=== PATIENT | female | born 1945 | race Caucasian/White ===

== ENCOUNTER 2022-09-25 01:35 | Inpatient (IN) | payer OTHER, MEDICARE ==
[~2022-09-25] VITALS: Ht 152.4 cm; Wt 64.9 kg
[2022-09-25] VITALS (18 sets, daily range): BP systolic 106–152; BP diastolic 73–94
[2022-09-25] MEDS ORDERED: HYDROcodone-ACET 5/325MG TAB PO ONE (02:00)
[2022-09-25] MEDS ORDERED: ONDANSETRON ODT 4 MG TAB PO ONE (02:30)
[2022-09-25] MEDS ORDERED: MORPHINE SULFATE INJ 2 MG/ml SYRG IM ONE (02:30)
[2022-09-25] MEDS ORDERED: IPRATROPIUM BROM 0.5 MG/2.5ML INH SOL NEB ONE (03:00)
[2022-09-25] MEDS ORDERED: ALBUTEROL SULF 2.5 MG/0.5ML(0.5%) NEB SOLN NEB ONE (03:00)
[2022-09-25] MEDS ORDERED: ALBUTEROL MEDNEB 2.5 mg/3ml NEB ONE ×2 (03:10→17:52)
[2022-09-25] MEDS ORDERED: LORazepam 2MG/ML-1ML VIAL IV ONE (03:45)
[2022-09-25 03:59] LABS: Basophils # (auto) 0.1 10 ^3/uL (0-0.2); Basophils % (auto) 0.5 % (0.0-2.0); Eosinophils # (auto) 0 10 ^3/uL (0-0.8); Hematocrit 39.5 % (36.0-46.0); Hemoglobin 13.5 g/dL (12.2-16.2); Lymphocytes # (auto) 0.9 10 ^3/uL (0.4-5.4); Lymphocytes % (auto) 3.8 % (10.0-50.0); Mean Corpuscular Hemoglobin 33.7 pg (28.0-32.0); Mean Corpuscular Hgb Conc. 34.3 g/dL (32.0-36.0); Mean Corpuscular Volume 98.5 fL (80.0-100.0); Monocytes # (auto) 1.2 10 ^3/uL (0-1.3); Monocytes % (auto) 5.4 % (0.0-12.0); Neutrophils % (auto) 90.3 % (37.0-80.0); Nucleated Red Blood Cells % 0.1 %; Red Blood Cells 4.01 10^6/uL (4.0-5.20); Red Cell Distribution Width 13.6 % (11.8-14.3); White Blood Cell 23.3 10^3/uL (4.4-10.8)
[2022-09-25 04:04] LABS: Alanine Aminotransferase 28 U/L (13-56); Albumin 3.7 g/dL (3.4-5.0); Anion Gap 29 (5-15); Aspartate Aminotransferase 75 U/L (15-37); BUN/Creatinine Ratio 10.7; Blood Urea Nitrogen 12 mg/dL (7-18); Calcium 7.9 mg/dL (8.5-10.1); Carbon Dioxide 17 mmol/L (21-32); Chloride 68 mmol/L (98-107); GFR African American 61 mL/min; GFR Non-African American 50 mL/min; Glucose 146 mg/dL (74-106)
[2022-09-25 04:07] LABS: Alkaline Phosphatase 96 U/L (45-117); Bilirubin, Total 2.2 mg/dL (0.2-1.0); Total Protein 6.9 g/dL (6.4-8.2)
[2022-09-25] MEDS ORDERED: hydrALAZINE HCL 20 MG/ML VL IV ONE (04:30)
[2022-09-25 04:34] LABS: Potassium 2.7 mmol/L (3.5-5.1); Sodium 114 mmol/L (136-145)
[2022-09-25] MEDS ORDERED: POTASSIUM CHL 20MEQ/100ML 100 ML IV ONE ×2 (04:45→06:15)
[2022-09-25] MEDS ORDERED: POTASSIUM CHL 20 Meq TABLET PO ONE (04:45)
[2022-09-25] MEDS ORDERED: cefTRIAXone 1GM/50ML D5W 50 ML IV ONE (04:45)
[2022-09-25] MEDS ORDERED: ETOMIDATE (2MG/ML) 20ML VIAL IV ONE ×2 (05:56→06:45)
[2022-09-25] MEDS ORDERED: MIDAZOLAM HCL 2MG/2ML 2ml VIAL (1mg/ml) ONE (05:57)
[2022-09-25] MEDS ORDERED: ROCURONIUM 10MG/ML 10ML VIAL IV ONE ×2 (05:57→06:45)
[2022-09-25] MEDS ORDERED: MIDAZOLAM DRIP 50 mg/50mL 50 ML IV ONE (06:30)
[2022-09-25] MEDS: MIDAZOLAM DRIP 50 mg/50mL 50 ML IV SCH (06:40)
[2022-09-25] MEDS ORDERED: MIDAZOLAM HCL 5 MG/ML-1ML VIAL IV ONE (06:45)
[2022-09-25] MEDS ORDERED: NOREPINEPHRINE 8 MG/250ML KIT 250 ML IV ONE (07:41)
[2022-09-25] MEDS ORDERED: NOREPINEPHRINE 8 MG/250ML KIT 250 ML IV SCH (07:45)
[2022-09-25] MEDS ORDERED: ENOXAPARIN SOD 100 MG/1 ML SYRINGE SC ONE (08:30)
[2022-09-25] MEDS ORDERED: SODIUM CHLORIDE 0.9% 2,000 ML IV ONE (09:15)
[2022-09-25] MEDS ORDERED: NITROGLYCERIN 0.4 MG SL TAB SL PRN (09:30)
[2022-09-25 09:54] LABS: BUN/Creatinine Ratio 10.3
[2022-09-25] MEDS: ENOXAPARIN SOD 40 MG/0.4 ML SYRINGE SC SCH (10:00)
[2022-09-25 10:45] LABS: Calcium 7.6 mg/dL (8.5-10.1)
[2022-09-25] MEDS: POTASSIUM CHL 20MEQ/100ML 100 ML IV SCH ×5 (10:47→18:46)
[2022-09-25 10:50] LABS: Potassium 2.5 mmol/L (3.5-5.1)
[2022-09-25 10:54] LABS: Lactic Acid w/Reflex 3.8 mmol/L (0.4-2.0)
[2022-09-25] MEDS ORDERED: VANCOMYCIN PER PHARMACY 0 MG IV SCH (11:15)
[2022-09-25] MEDS ORDERED: POTASSIUM CHL 20MEQ/100ML 100 ML IV SCH ×2 (11:30→20:00)
[2022-09-25] MEDS ORDERED: PANTOPRAZOLE 40 MG/10 ML VIAL INJ IV ONE (11:30)
[2022-09-25] MEDS ORDERED: D5W/SOD CHL 0.45%/KCL 20MEQ 1,000 ML IV SCH (11:30)
[2022-09-25] MEDS ORDERED: MAGNESIUM SULFATE 1GM/100ML 100 ML IV ONE (11:30)
[2022-09-25] MEDS ORDERED: LOVA20TA4 PO (11:31)
[2022-09-25] MEDS ORDERED: ATEN25TA PO (11:31)
[2022-09-25] MEDS ORDERED: IPRATROPIUM BROM 0.5 MG/2.5ML INH SOL NEB PRN (11:45)
[2022-09-25] MEDS ORDERED: ALBUTEROL SULF 2.5 MG/0.5ML(0.5%) NEB SOLN NEB PRN (11:45)
[2022-09-25] MEDS: methylPREDNISolone SOD SUCC 125 MG/2 ML VL IV SCH ×2 (12:00→23:54)
[2022-09-25 12:04] LABS: Alcohol, Urine < 3.0 mg/dL (0-10); Amphetamine Screen, Urine NEGATIVE (NEGATIVE); Barbiturate Scree,Urine NEGATIVE (NEGATIVE); Benzodiazephine Screen, Urine POSITIVE (NEGATIVE); Cannabinoid Screen, Urine NEGATIVE (NEGATIVE); Cocaine Screen, Urine NEGATIVE (NEGATIVE); Opiate Scree,Urine POSITIVE (NEGATIVE); Phencyclidine Screen, Urine NEGATIVE (NEGATIVE)
[2022-09-25] MEDS ORDERED: SODIUM BICARBONATE 8.4 % INJ 50ML VIAL IV ONE (12:15)
[2022-09-25 12:35] LABS: Urine Bacteria FEW /hpf (None Seen); Urine Blood 3+ /uL (Negative); Urine Hyaline Cast FEW /lpf (0 - 2); Urine Mucus FEW (None Seen); Urine Specific Gravity 1.011 (1.001-1.035); Urine WBC 19 /hpf (0 - 5)
[2022-09-25 13:04] LABS: BUN/Creatinine Ratio 13.5
[2022-09-25 13:26] LABS: Potassium 2.4 mmol/L (3.5-5.1)
[2022-09-25 13:36] LABS: Lactic Acid w/Reflex 2.8 mmol/L (0.4-2.0)
[2022-09-25] MEDS: CEFEPIME 1GM/ 50ML 50 ML IV SCH (13:39)
[2022-09-25] MEDS: VANCOMYCIN 1GM/250ML 250 ML IV SCH (14:24)
[2022-09-25] MEDS: PROPOFOL 100 ML IV SCH ×2 (15:16→16:14)
[2022-09-25] MEDS: ALBUTEROL SULF 2.5 MG/0.5ML(0.5%) NEB SOLN NEB SCH ×2 (15:16→18:11)
[2022-09-25] MEDS: IPRATROPIUM BROM 0.5 MG/2.5ML INH SOL NEB SCH ×2 (15:16→18:11)
[2022-09-25] MEDS ORDERED: SPIRONOLACTONE 25 MG TAB PO ONE (17:15)
[2022-09-25 18:44] LABS: Calcium 7.7 mg/dL (8.5-10.1); Potassium 3.3 mmol/L (3.5-5.1)
[2022-09-25 18:45] LABS: BUN/Creatinine Ratio 14.2
[2022-09-25] MEDS: ATENOLOL 25 MG TAB PO SCH (23:53)
[2022-09-26] VITALS (104 sets, daily range): BP systolic 85–130; BP diastolic 48–80
[2022-09-26] MEDS: PROPOFOL 100 ML IV SCH ×3 (00:07→16:34)
[2022-09-26] MEDS: MIDAZOLAM DRIP 50 mg/50mL 50 ML IV SCH ×4 (00:07→21:24)
[2022-09-26] MEDS ORDERED: ALBUTEROL MEDNEB 2.5 mg/3ml NEB ONE ×3 (00:11→11:51)
[2022-09-26] MEDS: ALBUTEROL SULF 2.5 MG/0.5ML(0.5%) NEB SOLN NEB SCH ×3 (00:20→11:53)
[2022-09-26] MEDS: IPRATROPIUM BROM 0.5 MG/2.5ML INH SOL NEB SCH ×4 (00:20→18:23)
[2022-09-26 01:48] LABS: BUN/Creatinine Ratio 15.2; Calcium 7.8 mg/dL (8.5-10.1); Potassium 3.2 mmol/L (3.5-5.1)
[2022-09-26] MEDS: CEFEPIME 1GM/ 50ML 50 ML IV SCH ×3 (03:53→21:57)
[2022-09-26 04:27] LABS: Mean Corpuscular Volume 97.4 fL (80.0-100.0); Red Cell Distribution Width 13.6 % (11.8-14.3); White Blood Cell 13.3 10^3/uL (4.4-10.8)
[2022-09-26 04:28] LABS: Hemoglobin 11.3 g/dL (12.2-16.2); Mean Corpuscular Hemoglobin 34.5 pg (28.0-32.0); Mean Corpuscular Hgb Conc. 35.5 g/dL (32.0-36.0); Red Blood Cells 3.28 10^6/uL (4.0-5.20)
[2022-09-26 04:34] LABS: Albumin 2.8 g/dL (3.4-5.0); Calcium 7.8 mg/dL (8.5-10.1); Potassium 3.4 mmol/L (3.5-5.1)
[2022-09-26 04:39] LABS: BUN/Creatinine Ratio 16.8; Bilirubin, Total 1.5 mg/dL (0.2-1.0); Total Protein 5.2 g/dL (6.4-8.2)
[2022-09-26 04:51] LABS: Basophils % (manual) 0 (0.0-2.0); Blast Cells 0; Eosinophils % (manual) 0 (0-7); Metamyelocytes % 0; Monocytes % (manual) 0 (0-12); Myelocytes % 0; Promyelocytes % 0; Reactive Lymphocytes 0
[2022-09-26 07:48] LABS: Band Neutrophils % (manual) 19; Lymphocytes % (manual) 2 (10.0-50.0)
[2022-09-26] MEDS: POTASSIUM CHL 20MEQ/100ML 100 ML IV SCH ×3 (08:01→13:12)
[2022-09-26] MEDS ORDERED: LOVASTATIN PO SCH (10:00)
[2022-09-26] MEDS ORDERED: SPIRONOLACTONE 25 MG TAB PO SCH (10:00)
[2022-09-26] MEDS: methylPREDNISolone SOD SUCC 125 MG/2 ML VL IV SCH (10:19)
[2022-09-26] MEDS: ENOXAPARIN SOD 40 MG/0.4 ML SYRINGE SC SCH (10:21)
[2022-09-26] MEDS: ATENOLOL 25 MG TAB PO SCH (10:22)
[2022-09-26] MEDS: PANTOPRAZOLE 40 MG/10 ML VIAL INJ IV SCH (10:22)
[2022-09-26 12:35] LABS: BUN/Creatinine Ratio 17.5; Calcium 8.2 mg/dL (8.5-10.1); Potassium 3.7 mmol/L (3.5-5.1)
[2022-09-26] MEDS ORDERED: SODIUM CHLORIDE 0.9% 1,000 ML IV SCH (14:30)
[2022-09-26] MEDS ORDERED: ALBUTEROL MEDNEB 2.5 mg/3ml NEB NEB PRN (14:45)
[2022-09-26] MEDS: VANCOMYCIN 1GM/250ML 250 ML IV SCH (14:57)
[2022-09-26] MEDS: MAGNESIUM SULFATE 1GM/100ML 100 ML IV SCH ×2 (15:43→16:54)
[2022-09-26] MEDS: fentaNYL Drip 2500mCg/250mlNS 250 ML IV SCH (16:33)
[2022-09-26] MEDS: ALBUTEROL MEDNEB 2.5 mg/3ml NEB NEB SCH (18:23)
[2022-09-26 18:50] LABS: BUN/Creatinine Ratio 16.8; Calcium 8.4 mg/dL (8.5-10.1)
[2022-09-27] VITALS (106 sets, daily range): BP systolic 87–126; BP diastolic 49–74
[2022-09-27] MEDS: IPRATROPIUM BROM 0.5 MG/2.5ML INH SOL NEB SCH ×4 (00:04→18:49)
[2022-09-27] MEDS: ALBUTEROL MEDNEB 2.5 mg/3ml NEB NEB SCH ×4 (00:04→18:49)
[2022-09-27] MEDS: MIDAZOLAM DRIP 50 mg/50mL 50 ML IV SCH ×6 (00:32→20:40)
[2022-09-27 04:25] LABS: Basophils # (auto) 0 10 ^3/uL (0-0.2); Eosinophils # (auto) 0 10 ^3/uL (0-0.8); Eosinophils % (auto) 0.1 % (0.0-7.0); Hemoglobin 10.3 g/dL (12.2-16.2); Lymphocytes # (auto) 0.4 10 ^3/uL (0.4-5.4); Neutrophils # (auto) 17.6 10 ^3/uL (1.6-8.6); Nucleated Red Blood Cells % 0.1 %; White Blood Cell 18.7 10^3/uL (4.4-10.8)
[2022-09-27 04:28] LABS: Basophils % (auto) 0.1 % (0.0-2.0); Hematocrit 29.6 % (36.0-46.0); Lymphocytes % (auto) 1.9 % (10.0-50.0); Mean Corpuscular Hemoglobin 34.2 pg (28.0-32.0); Mean Corpuscular Volume 97.8 fL (80.0-100.0); Monocytes # (auto) 0.7 10 ^3/uL (0-1.3); Monocytes % (auto) 3.5 % (0.0-12.0); Neutrophils % (auto) 94.4 % (37.0-80.0); Red Blood Cells 3.02 10^6/uL (4.0-5.20); Red Cell Distribution Width 13.9 % (11.8-14.3)
[2022-09-27 04:43] LABS: INR 0.95 (0.9-1.15); Partial Thromboplastin Time 24.8 sec (24.6-33.4)
[2022-09-27 04:45] LABS: BUN/Creatinine Ratio 20.6; Calcium 8.3 mg/dL (8.5-10.1); Magnesium 2.5 mg/dL (1.6-2.6); Potassium 3.9 mmol/L (3.5-5.1)
[2022-09-27] MEDS: PROPOFOL 100 ML IV SCH (07:14)
[2022-09-27] MEDS: CEFEPIME 1GM/ 50ML 50 ML IV SCH ×2 (09:33→21:13)
[2022-09-27] MEDS: PANTOPRAZOLE 40 MG/10 ML VIAL INJ IV SCH (09:33)
[2022-09-27] MEDS: VANCOMYCIN 1GM/250ML 250 ML IV SCH (13:57)
[2022-09-27] MEDS ORDERED: Jevity 1.2 Cal/Fiber 1 Liter GT SCH (14:30)
[2022-09-27] MEDS: fentaNYL Drip 2500mCg/250mlNS 250 ML IV SCH (20:40)
[2022-09-28] VITALS (103 sets, daily range): BP systolic 87–125; BP diastolic 48–80
[2022-09-28] MEDS: IPRATROPIUM BROM 0.5 MG/2.5ML INH SOL NEB SCH ×4 (00:44→18:13)
[2022-09-28] MEDS: ALBUTEROL MEDNEB 2.5 mg/3ml NEB NEB SCH ×4 (00:44→18:14)
[2022-09-28] MEDS: MIDAZOLAM DRIP 50 mg/50mL 50 ML IV SCH ×6 (01:23→22:33)
[2022-09-28 03:38] LABS: Basophils # (auto) 0 10 ^3/uL (0-0.2); Eosinophils # (auto) 0 10 ^3/uL (0-0.8); Eosinophils % (auto) 0.3 % (0.0-7.0)
[2022-09-28 03:40] LABS: Basophils % (auto) 0.1 % (0.0-2.0); Hematocrit 29.1 % (36.0-46.0); Hemoglobin 10.1 g/dL (12.2-16.2); Lymphocytes # (auto) 0.9 10 ^3/uL (0.4-5.4); Lymphocytes % (auto) 8.1 % (10.0-50.0); Mean Corpuscular Hemoglobin 34.5 pg (28.0-32.0); Mean Corpuscular Hgb Conc. 34.8 g/dL (32.0-36.0); Mean Corpuscular Volume 98.9 fL (80.0-100.0); Monocytes # (auto) 0.4 10 ^3/uL (0-1.3); Monocytes % (auto) 3.6 % (0.0-12.0); Neutrophils % (auto) 87.9 % (37.0-80.0); Nucleated Red Blood Cells % 0.2 %; Red Blood Cells 2.94 10^6/uL (4.0-5.20); Red Cell Distribution Width 14.3 % (11.8-14.3); White Blood Cell 11.3 10^3/uL (4.4-10.8)
[2022-09-28 04:04] LABS: BUN/Creatinine Ratio 21.6; Calcium 8.2 mg/dL (8.5-10.1); Potassium 3.3 mmol/L (3.5-5.1)
[2022-09-28] MEDS ORDERED: POTASSIUM EFFERVESENT TAB 25 MEQ GT ONE (10:00)
[2022-09-28] MEDS: PANTOPRAZOLE 40 MG/10 ML VIAL INJ IV SCH (10:22)
[2022-09-28] MEDS: CEFEPIME 1GM/ 50ML 50 ML IV SCH ×2 (10:22→22:32)
[2022-09-28] MEDS: fentaNYL Drip 2500mCg/250mlNS 250 ML IV SCH (14:30)
[2022-09-28] MEDS: VANCOMYCIN 750mg/250ml 250 ML IV SCH (16:00)
[2022-09-28] MEDS ORDERED: ALBUTEROL SULF 2.5 MG/0.5ML(0.5%) NEB SOLN ONE (18:09)
[2022-09-29] VITALS (100 sets, daily range): BP systolic 105–195; BP diastolic 55–109
[2022-09-29] MEDS ORDERED: ALBUTEROL SULF 2.5 MG/0.5ML(0.5%) NEB SOLN ONE ×6 (00:02→23:59)
[2022-09-29] MEDS: ALBUTEROL MEDNEB 2.5 mg/3ml NEB NEB SCH ×4 (00:07→18:24)
[2022-09-29] MEDS: IPRATROPIUM BROM 0.5 MG/2.5ML INH SOL NEB SCH ×4 (00:07→18:24)
[2022-09-29] MEDS: MIDAZOLAM DRIP 50 mg/50mL 50 ML IV SCH ×2 (03:22→20:11)
[2022-09-29 03:50] LABS: Basophils # (auto) 0 10 ^3/uL (0-0.2); Basophils % (auto) 0.3 % (0.0-2.0); Eosinophils # (auto) 0.1 10 ^3/uL (0-0.8); Eosinophils % (auto) 1.3 % (0.0-7.0); Hematocrit 30.6 % (36.0-46.0); Hemoglobin 10.5 g/dL (12.2-16.2); Lymphocytes # (auto) 0.7 10 ^3/uL (0.4-5.4); Lymphocytes % (auto) 8.3 % (10.0-50.0); Mean Corpuscular Hemoglobin 33.9 pg (28.0-32.0); Mean Corpuscular Hgb Conc. 34.5 g/dL (32.0-36.0); Mean Corpuscular Volume 98.4 fL (80.0-100.0); Monocytes # (auto) 0.7 10 ^3/uL (0-1.3); Monocytes % (auto) 7.8 % (0.0-12.0); Neutrophils # (auto) 7.2 10 ^3/uL (1.6-8.6); Neutrophils % (auto) 82.3 % (37.0-80.0); Nucleated Red Blood Cells % 0.1 %; Red Blood Cells 3.11 10^6/uL (4.0-5.20); Red Cell Distribution Width 14.6 % (11.8-14.3); White Blood Cell 8.7 10^3/uL (4.4-10.8)
[2022-09-29 04:14] LABS: Calcium 8.6 mg/dL (8.5-10.1); Potassium 4.1 mmol/L (3.5-5.1)
[2022-09-29 04:17] LABS: BUN/Creatinine Ratio 25.8
[2022-09-29] MEDS: PROPOFOL 100 ML IV SCH (06:30)
[2022-09-29] MEDS: PANTOPRAZOLE 40 MG/10 ML VIAL INJ IV SCH (09:48)
[2022-09-29] MEDS: CEFEPIME 1GM/ 50ML 50 ML IV SCH (09:49)
[2022-09-29] MEDS: MEROPENEM 1GM IVPB 100 ML IV SCH ×2 (13:32→21:32)
[2022-09-29] MEDS: VANCOMYCIN 750mg/250ml 250 ML IV SCH (16:00)
[2022-09-29] MEDS: fentaNYL Drip 2500mCg/250mlNS 250 ML IV SCH (20:13)
[2022-09-30] VITALS (108 sets, daily range): BP systolic 132–198; BP diastolic 48–165
[2022-09-30] MEDS: MIDAZOLAM DRIP 50 mg/50mL 50 ML IV SCH ×3 (00:06→21:00)
[2022-09-30] MEDS: ALBUTEROL MEDNEB 2.5 mg/3ml NEB NEB SCH ×4 (00:15→18:48)
[2022-09-30] MEDS: IPRATROPIUM BROM 0.5 MG/2.5ML INH SOL NEB SCH ×4 (00:15→18:47)
[2022-09-30 04:43] LABS: Chloride 97 mmol/L (98-107); Potassium 4.8 mmol/L (3.5-5.1); Sodium 131 mmol/L (136-145)
[2022-09-30 04:50] LABS: Anion Gap 10 (5-15); BUN/Creatinine Ratio 28.3; Blood Urea Nitrogen 15 mg/dL (7-18); Calcium 7.8 mg/dL (8.5-10.1); Carbon Dioxide 24 mmol/L (21-32); GFR African American 144 mL/min; GFR Non-African American 119 mL/min; Glucose 99 mg/dL (74-106)
[2022-09-30] MEDS: MEROPENEM 1GM IVPB 100 ML IV SCH ×3 (05:22→22:00)
[2022-09-30] MEDS ORDERED: ALBUTEROL SULF 2.5 MG/0.5ML(0.5%) NEB SOLN ONE ×3 (05:25→18:10)
[2022-09-30 06:22] LABS: Hematocrit 34.1 % (36.0-46.0); Hemoglobin 11.5 g/dL (12.2-16.2); Mean Corpuscular Hemoglobin 33.8 pg (28.0-32.0); Mean Corpuscular Hgb Conc. 33.8 g/dL (32.0-36.0); Red Blood Cells 3.41 10^6/uL (4.0-5.20); Red Cell Distribution Width 14.3 % (11.8-14.3); White Blood Cell 8.1 10^3/uL (4.4-10.8)
[2022-09-30] MEDS: PROPOFOL 100 ML IV SCH (07:48)
[2022-09-30 07:58] LABS: Basophils % (manual) 0 (0.0-2.0); Blast Cells 0; Metamyelocytes % 0; Myelocytes % 0; Promyelocytes % 0; Reactive Lymphocytes 0
[2022-09-30 08:51] LABS: Band Neutrophils % (manual) 14; Lymphocytes % (manual) 16 (10.0-50.0)
[2022-09-30 08:52] LABS: Eosinophils % (manual) 3 (0-7); Monocytes % (manual) 20 (0-12)
[2022-09-30] MEDS: PANTOPRAZOLE 40 MG/10 ML VIAL INJ IV SCH (10:34)
[2022-09-30] MEDS ORDERED: ONDANSETRON HCL 4 MG/2 ML VIAL IV PRN (12:15)
[2022-09-30] MEDS: fentaNYL Drip 2500mCg/250mlNS 250 ML IV SCH (14:30)
[2022-09-30] MEDS: VANCOMYCIN 750mg/250ml 250 ML IV SCH (16:34)
[2022-09-30] MEDS ORDERED: METOPROLOL TARTRATE 1MG/1ML-5ML VIAL IV ONE ×2 (17:13→17:15)
[2022-10-01] VITALS (104 sets, daily range): BP systolic 105–175; BP diastolic 41–101
[2022-10-01] MEDS ORDERED: ALBUTEROL SULF 2.5 MG/0.5ML(0.5%) NEB SOLN ONE ×4 (00:03→18:39)
[2022-10-01] MEDS: IPRATROPIUM BROM 0.5 MG/2.5ML INH SOL NEB SCH ×4 (00:14→18:40)
[2022-10-01] MEDS: ALBUTEROL MEDNEB 2.5 mg/3ml NEB NEB SCH ×4 (00:14→18:40)
[2022-10-01] MEDS ORDERED: LABETALOL HCL 5 MG/ML 4ML SYRINGE IV ONE (04:45)
[2022-10-01] MEDS: MEROPENEM 1GM IVPB 100 ML IV SCH (06:24)
[2022-10-01] MEDS: fentaNYL Drip 2500mCg/250mlNS 250 ML IV SCH (06:33)
[2022-10-01] MEDS: PROPOFOL 100 ML IV SCH (08:07)
[2022-10-01 10:24] LABS: BUN/Creatinine Ratio 28.3; Calcium 7.8 mg/dL (8.5-10.1); Potassium 4.8 mmol/L (3.5-5.1)
[2022-10-01] MEDS: PANTOPRAZOLE 40 MG/10 ML VIAL INJ IV SCH (10:24)
[2022-10-01 11:40] LABS: Basophils # (auto) 0 10 ^3/uL (0-0.2); Eosinophils # (auto) 0.1 10 ^3/uL (0-0.8); Eosinophils % (auto) 1.4 % (0.0-7.0); Hematocrit 25.6 % (36.0-46.0); Hemoglobin 8.4 g/dL (12.2-16.2); Lymphocytes # (auto) 0.4 10 ^3/uL (0.4-5.4); Lymphocytes % (auto) 9.6 % (10.0-50.0); Mean Corpuscular Hemoglobin 33.7 pg (28.0-32.0); Mean Corpuscular Hgb Conc. 32.8 g/dL (32.0-36.0); Mean Corpuscular Volume 102.7 fL (80.0-100.0); Monocytes # (auto) 0.8 10 ^3/uL (0-1.3); Monocytes % (auto) 16.8 % (0.0-12.0); Neutrophils # (auto) 3.2 10 ^3/uL (1.6-8.6); Neutrophils % (auto) 71.2 % (37.0-80.0); Nucleated Red Blood Cells % 0.1 %; Red Blood Cells 2.49 10^6/uL (4.0-5.20); Red Cell Distribution Width 14.2 % (11.8-14.3); White Blood Cell 4.5 10^3/uL (4.4-10.8)
[2022-10-01 12:40] LABS: INR 0.97 (0.9-1.15); Partial Thromboplastin Time 27.3 sec (24.6-33.4)
[2022-10-01] MEDS: MIDAZOLAM DRIP 50 mg/50mL 50 ML IV SCH ×3 (13:33→22:40)
[2022-10-01 14:55] LABS: Basophils # (auto) 0 10 ^3/uL (0-0.2); Eosinophils # (auto) 0.1 10 ^3/uL (0-0.8); Lymphocytes # (auto) 0.6 10 ^3/uL (0.4-5.4); Monocytes # (auto) 0.7 10 ^3/uL (0-1.3); Neutrophils # (auto) 3.2 10 ^3/uL (1.6-8.6); White Blood Cell 4.6 10^3/uL (4.4-10.8)
[2022-10-01 14:57] LABS: Basophils % (auto) 0.6 % (0.0-2.0); Eosinophils % (auto) 2.2 % (0.0-7.0); Hematocrit 28.7 % (36.0-46.0); Hemoglobin 9.7 g/dL (12.2-16.2); Lymphocytes % (auto) 12.8 % (10.0-50.0); Mean Corpuscular Hemoglobin 33.5 pg (28.0-32.0); Mean Corpuscular Hgb Conc. 33.8 g/dL (32.0-36.0); Neutrophils % (auto) 69.4 % (37.0-80.0); Nucleated Red Blood Cells % 0.3 %
[2022-10-01] MEDS ORDERED: METOCLOPRAMIDE HCL 5MG/ml INJ 2ml VIAL IV ONE (15:00)
[2022-10-01] MEDS ORDERED: ceFAZolin 2 GM/D5W100ml 100 ML IV ONE (15:00)
[2022-10-01] MEDS ORDERED: LIDOCAINE 1% (LOCAL ANESTH.) PF 5ml SDV ID ONE (15:45)
[2022-10-01] MEDS: METOCLOPRAMIDE HCL 5MG/ml INJ 2ml VIAL IV SCH (21:37)
[2022-10-01] MEDS: SODIUM CHLOR 0.9% PF (SALINE LOCK) 10ML VIAL/SYR IV SCH (21:38)
[2022-10-02] VITALS (105 sets, daily range): BP systolic 105–216; BP diastolic 47–142
[2022-10-02] MEDS ORDERED: ALBUTEROL SULF 2.5 MG/0.5ML(0.5%) NEB SOLN ONE ×4 (00:12→18:36)
[2022-10-02] MEDS: IPRATROPIUM BROM 0.5 MG/2.5ML INH SOL NEB SCH ×4 (00:32→21:26)
[2022-10-02] MEDS: ALBUTEROL MEDNEB 2.5 mg/3ml NEB NEB SCH ×4 (00:32→21:26)
[2022-10-02] MEDS: ceFAZolin 2 GM/D5W100ml 100 ML IV SCH ×3 (00:53→17:44)
[2022-10-02] MEDS: fentaNYL Drip 2500mCg/250mlNS 250 ML IV SCH ×2 (02:22→23:05)
[2022-10-02 04:38] LABS: Basophils # (auto) 0 10 ^3/uL (0-0.2); Eosinophils # (auto) 0.1 10 ^3/uL (0-0.8); Eosinophils % (auto) 1.6 % (0.0-7.0); Mean Corpuscular Volume 99.1 fL (80.0-100.0); Monocytes # (auto) 0.7 10 ^3/uL (0-1.3)
[2022-10-02 04:40] LABS: Basophils % (auto) 0.6 % (0.0-2.0); Hematocrit 26.5 % (36.0-46.0); Hemoglobin 9.1 g/dL (12.2-16.2); Lymphocytes # (auto) 0.7 10 ^3/uL (0.4-5.4); Lymphocytes % (auto) 10.9 % (10.0-50.0); Mean Corpuscular Hemoglobin 33.9 pg (28.0-32.0); Mean Corpuscular Hgb Conc. 34.2 g/dL (32.0-36.0); Monocytes % (auto) 11.5 % (0.0-12.0); Neutrophils # (auto) 4.6 10 ^3/uL (1.6-8.6); Neutrophils % (auto) 75.4 % (37.0-80.0); Nucleated Red Blood Cells % 0.1 %; Red Blood Cells 2.67 10^6/uL (4.0-5.20); Red Cell Distribution Width 13.9 % (11.8-14.3); White Blood Cell 6.1 10^3/uL (4.4-10.8)
[2022-10-02 04:53] LABS: BUN/Creatinine Ratio 29.3; Calcium 8.1 mg/dL (8.5-10.1); Potassium 3.4 mmol/L (3.5-5.1)
[2022-10-02] MEDS: METOCLOPRAMIDE HCL 5MG/ml INJ 2ml VIAL IV SCH ×3 (05:35→22:16)
[2022-10-02] MEDS ORDERED: MAGNESIUM SULFATE 1GM/100ML 100 ML IV ONE (06:15)
[2022-10-02] MEDS: PROPOFOL 100 ML IV SCH (06:30)
[2022-10-02] MEDS: SODIUM CHLOR 0.9% PF (SALINE LOCK) 10ML VIAL/SYR IV SCH ×2 (10:25→22:17)
[2022-10-02] MEDS: PANTOPRAZOLE 40 MG/10 ML VIAL INJ IV SCH (10:25)
[2022-10-02] MEDS: MIDAZOLAM DRIP 50 mg/50mL 50 ML IV SCH (11:16)
[2022-10-02] MEDS ORDERED: POTASSIUM EFFERVESENT TAB 25 MEQ GT ONE (13:30)
[2022-10-02] MEDS ORDERED: THIAMINE 100mg/ml INJ (200mg/2ml VIAL) IV ONE (13:30)
[2022-10-03] VITALS (74 sets, daily range): BP systolic 116–207; BP diastolic 55–112
[2022-10-03] MEDS ORDERED: ALBUTEROL SULF 2.5 MG/0.5ML(0.5%) NEB SOLN ONE ×3 (00:09→12:32)
[2022-10-03] MEDS: ceFAZolin 2 GM/D5W100ml 100 ML IV SCH ×3 (01:39→16:49)
[2022-10-03] MEDS: ALBUTEROL MEDNEB 2.5 mg/3ml NEB NEB SCH (02:34)
[2022-10-03] MEDS: IPRATROPIUM BROM 0.5 MG/2.5ML INH SOL NEB SCH ×4 (02:35→18:40)
[2022-10-03] MEDS: MIDAZOLAM DRIP 50 mg/50mL 50 ML IV SCH (03:04)
[2022-10-03 03:27] LABS: Hemoglobin 8.4 g/dL (12.2-16.2); Mean Corpuscular Hgb Conc. 34.2 g/dL (32.0-36.0)
[2022-10-03 03:34] LABS: Basophils # (auto) 0.1 10 ^3/uL (0-0.2); Eosinophils # (auto) 0.1 10 ^3/uL (0-0.8); Hematocrit 24.6 % (36.0-46.0); Lymphocytes # (auto) 0.9 10 ^3/uL (0.4-5.4); Lymphocytes % (auto) 14.4 % (10.0-50.0); Mean Corpuscular Hemoglobin 33.7 pg (28.0-32.0); Mean Corpuscular Volume 98.8 fL (80.0-100.0); Monocytes # (auto) 0.5 10 ^3/uL (0-1.3); Monocytes % (auto) 7.6 % (0.0-12.0); Red Blood Cells 2.49 10^6/uL (4.0-5.20); Red Cell Distribution Width 13.8 % (11.8-14.3); White Blood Cell 6.5 10^3/uL (4.4-10.8)
[2022-10-03 03:41] LABS: BUN/Creatinine Ratio 23.4; Potassium 3.5 mmol/L (3.5-5.1)
[2022-10-03] MEDS: METOCLOPRAMIDE HCL 5MG/ml INJ 2ml VIAL IV SCH ×3 (05:32→21:14)
[2022-10-03] MEDS: PROPOFOL 100 ML IV SCH (06:30)
[2022-10-03] MEDS: PANTOPRAZOLE 40 MG/10 ML VIAL INJ IV SCH (08:47)
[2022-10-03] MEDS: SODIUM CHLOR 0.9% PF (SALINE LOCK) 10ML VIAL/SYR IV SCH ×2 (08:47→21:15)
[2022-10-03] MEDS: THIAMINE 100mg/ml INJ (200mg/2ml VIAL) IV SCH (08:47)
[2022-10-03] MEDS ORDERED: EPINEPHrine HCL 0.5 ML NEB ONE (12:28)
[2022-10-03] MEDS ORDERED: EPINEPHrine HCL 0.5 ML NEB NEB ONE (12:45)
[2022-10-03] MEDS ORDERED: FUROSEMIDE 40 MG/4 ML VIAL ONE (12:50)
[2022-10-03] MEDS ORDERED: methylPREDNISolone SOD SUCC 125 MG/2 ML VL ONE (13:02)
[2022-10-03] MEDS ORDERED: methylPREDNISolone SOD SUCC 125 MG/2 ML VL IV ONE (13:15)
[2022-10-03] MEDS: LABETALOL HCL 5 MG/ML 4ML SYRINGE IV PRN ×2 (17:05→21:16)
[2022-10-03] MEDS: ALBUTEROL SULF 2.5 MG/0.5ML(0.5%) NEB SOLN NEB SCH (18:40)
[2022-10-03] MEDS ORDERED: hydrALAZINE HCL 20 MG/ML VL IV ONE (19:00)
[2022-10-03] MEDS ORDERED: LORazepam 2MG/ML-1ML VIAL IM ONE (19:00)
[2022-10-03] MEDS: methylPREDNISolone SOD SUCC 40 MG/ML VL IV SCH (21:15)
[2022-10-03] MEDS: LORazepam 2MG/ML-1ML VIAL IV PRN (21:16)
[2022-10-04] VITALS (36 sets, daily range): BP systolic 127–189; BP diastolic 68–126
[2022-10-04] MEDS: ALBUTEROL SULF 2.5 MG/0.5ML(0.5%) NEB SOLN NEB SCH ×4 (00:45→19:00)
[2022-10-04] MEDS: IPRATROPIUM BROM 0.5 MG/2.5ML INH SOL NEB SCH ×4 (00:45→19:00)
[2022-10-04] MEDS: ceFAZolin 2 GM/D5W100ml 100 ML IV SCH ×3 (00:58→16:23)
[2022-10-04] MEDS: LABETALOL HCL 5 MG/ML 4ML SYRINGE IV PRN ×5 (01:00→22:00)
[2022-10-04] MEDS ORDERED: EPINEPHrine HCL 0.5 ML NEB NEB ONE (01:30)
[2022-10-04] MEDS ORDERED: KETOROLAC TROMETH 30 MG/ML 1ML VIAL IV ONE (04:00)
[2022-10-04 05:04] LABS: Basophils # (auto) 0 10 ^3/uL (0-0.2); Basophils % (auto) 0.4 % (0.0-2.0); Eosinophils # (auto) 0 10 ^3/uL (0-0.8); Eosinophils % (auto) 0.1 % (0.0-7.0); Hematocrit 27.1 % (36.0-46.0); Lymphocytes # (auto) 0.5 10 ^3/uL (0.4-5.4); Lymphocytes % (auto) 4.6 % (10.0-50.0); Mean Corpuscular Hemoglobin 33.1 pg (28.0-32.0); Mean Corpuscular Hgb Conc. 33.4 g/dL (32.0-36.0); Mean Corpuscular Volume 99.1 fL (80.0-100.0); Monocytes # (auto) 0.5 10 ^3/uL (0-1.3); Monocytes % (auto) 4.6 % (0.0-12.0); Neutrophils # (auto) 10.4 10 ^3/uL (1.6-8.6); Neutrophils % (auto) 90.3 % (37.0-80.0); Red Blood Cells 2.73 10^6/uL (4.0-5.20); Red Cell Distribution Width 13.9 % (11.8-14.3); White Blood Cell 11.5 10^3/uL (4.4-10.8)
[2022-10-04] MEDS: METOCLOPRAMIDE HCL 5MG/ml INJ 2ml VIAL IV SCH (05:09)
[2022-10-04 05:11] LABS: Potassium 3.8 mmol/L (3.5-5.1)
[2022-10-04] MEDS: PROPOFOL 100 ML IV SCH (06:30)
[2022-10-04] MEDS: MIDAZOLAM DRIP 50 mg/50mL 50 ML IV SCH (06:30)
[2022-10-04] MEDS: PANTOPRAZOLE 40 MG/10 ML VIAL INJ IV SCH (08:36)
[2022-10-04] MEDS: THIAMINE 100mg/ml INJ (200mg/2ml VIAL) IV SCH (08:36)
[2022-10-04] MEDS: methylPREDNISolone SOD SUCC 40 MG/ML VL IV SCH ×2 (08:36→21:14)
[2022-10-04] MEDS: SODIUM CHLOR 0.9% PF (SALINE LOCK) 10ML VIAL/SYR IV SCH ×2 (08:37→21:14)
[2022-10-04] MEDS: LORazepam 2MG/ML-1ML VIAL IV PRN ×2 (09:29→16:17)
[2022-10-04] MEDS: fentaNYL Drip 2500mCg/250mlNS 250 ML IV SCH (12:36)
[2022-10-04] MEDS ORDERED: cloNIDine 0.2 mg/24hr 7DAY PATCH TD ONE (14:00)
[2022-10-04] MEDS ORDERED: FUROSEMIDE 40 MG/4 ML VIAL IV ONE (14:00)
[2022-10-04] MEDS ORDERED: cloNIDine 0.2 mg/24hr 7DAY PATCH TD SCH (14:00)
[2022-10-04] MEDS: MORPHINE SULFATE INJ 2 MG/ml SYRG IV PRN ×2 (14:17→20:03)
[2022-10-04] MEDS ORDERED: POTASSIUM CHL 20MEQ/100ML 100 ML IV ONE (14:30)
[2022-10-04] MEDS ORDERED: CYA100I IM (17:47)
[2022-10-04] MEDS ORDERED: HYDR-4798 PO (17:49)
[2022-10-04] MEDS ORDERED: SERT50TA19 PO (17:50)
[2022-10-04] MEDS ORDERED: GABA100C9 PO (17:50)
[2022-10-04] MEDS ORDERED: IBUP400T22 PO (17:50)
[2022-10-04] MEDS ORDERED: TRAZ100T3 PO (17:50)
[2022-10-04] MEDS ORDERED: ATEN50TA PO (17:51)
[2022-10-04] MEDS ORDERED: DOCU1CAP22 PO (17:51)
[2022-10-04] MEDS ORDERED: FUROSEMIDE 20 MG/2 ML VIAL ONE (22:57)
[2022-10-05] VITALS (42 sets, daily range): BP systolic 133–192; BP diastolic 62–121
[2022-10-05] MEDS: ALBUTEROL SULF 2.5 MG/0.5ML(0.5%) NEB SOLN NEB SCH ×4 (00:43→19:30)
[2022-10-05] MEDS: IPRATROPIUM BROM 0.5 MG/2.5ML INH SOL NEB SCH ×4 (00:43→19:30)
[2022-10-05] MEDS: LABETALOL HCL 5 MG/ML 4ML SYRINGE IV PRN (03:14)
[2022-10-05] MEDS: MORPHINE SULFATE INJ 2 MG/ml SYRG IV PRN ×2 (03:16→21:21)
[2022-10-05 04:09] LABS: Basophils # (auto) 0 10 ^3/uL (0-0.2); Basophils % (auto) 0.2 % (0.0-2.0); Eosinophils # (auto) 0 10 ^3/uL (0-0.8); Hematocrit 26.7 % (36.0-46.0); Lymphocytes # (auto) 0.5 10 ^3/uL (0.4-5.4); Lymphocytes % (auto) 3.6 % (10.0-50.0); Mean Corpuscular Hgb Conc. 33.5 g/dL (32.0-36.0); Mean Corpuscular Volume 98.5 fL (80.0-100.0); Monocytes # (auto) 0.5 10 ^3/uL (0-1.3); Neutrophils # (auto) 11.6 10 ^3/uL (1.6-8.6); Neutrophils % (auto) 92.2 % (37.0-80.0); Red Blood Cells 2.71 10^6/uL (4.0-5.20); Red Cell Distribution Width 14.3 % (11.8-14.3); White Blood Cell 12.6 10^3/uL (4.4-10.8)
[2022-10-05 04:32] LABS: Calcium 8.7 mg/dL (8.5-10.1); Potassium 4.2 mmol/L (3.5-5.1)
[2022-10-05 04:38] LABS: Albumin 2.8 g/dL (3.4-5.0); BUN/Creatinine Ratio 31.5; Bilirubin, Total 0.7 mg/dL (0.2-1.0); Total Protein 6.7 g/dL (6.4-8.2)
[2022-10-05] MEDS: LORazepam 2MG/ML-1ML VIAL IV PRN ×3 (09:07→22:40)
[2022-10-05] MEDS: THIAMINE 100mg/ml INJ (200mg/2ml VIAL) IV SCH (09:13)
[2022-10-05] MEDS: PANTOPRAZOLE 40 MG/10 ML VIAL INJ IV SCH (09:13)
[2022-10-05] MEDS: SODIUM CHLOR 0.9% PF (SALINE LOCK) 10ML VIAL/SYR IV SCH ×2 (09:13→22:15)
[2022-10-05] MEDS: ceFAZolin 2 GM/D5W100ml 100 ML IV SCH ×3 (09:13→17:11)
[2022-10-05] MEDS: methylPREDNISolone SOD SUCC 40 MG/ML VL IV SCH ×2 (09:13→22:15)
[2022-10-05] MEDS ORDERED: FUROSEMIDE 40 MG/4 ML VIAL ONE (12:57)
[2022-10-05] MEDS ORDERED: PPN PER PHARMACY 0 ML IV SCH (13:00)
[2022-10-05] MEDS ORDERED: FUROSEMIDE 40 MG/4 ML VIAL IV ONE (13:00)
[2022-10-05 15:09] LABS: Magnesium 1.9 mg/dL (1.6-2.6); Phosphorus 3.1 mg/dL (2.5-4.90)
[2022-10-05] MEDS ORDERED: TPN PER PHARMACY 0 ML IV SCH (16:00)
[2022-10-05] MEDS: dilTIAZem 125mg/125ml BAG KIT 125 ML IV SCH (17:15)
[2022-10-05] MEDS: AMINO ACID INFUSION IN D10W 1,000 ML IV NR (20:21)
[2022-10-05] MEDS ORDERED: HALOPERIDOL LACTATE 5 MG/ML INJ VIAL IM ONE (22:45)
[2022-10-06] VITALS (38 sets, daily range): BP systolic 105–164; BP diastolic 41–90
[2022-10-06] MEDS ORDERED: DEXTROSE (50%) 50ML SYRG IV SCH
[2022-10-06] MEDS: ACCU-CHEK COMFORT CURVE STRIP VI SCH ×4 (00:20→18:24)
[2022-10-06] MEDS: IPRATROPIUM BROM 0.5 MG/2.5ML INH SOL NEB SCH ×4 (00:32→18:28)
[2022-10-06] MEDS: ALBUTEROL SULF 2.5 MG/0.5ML(0.5%) NEB SOLN NEB SCH ×4 (00:32→18:28)
[2022-10-06] MEDS: dilTIAZem 125mg/125ml BAG KIT 125 ML IV SCH (00:40)
[2022-10-06] MEDS: ceFAZolin 2 GM/D5W100ml 100 ML IV SCH ×3 (01:10→17:01)
[2022-10-06 04:06] LABS: Basophils # (auto) 0 10 ^3/uL (0-0.2); Eosinophils # (auto) 0 10 ^3/uL (0-0.8); Hematocrit 24.4 % (36.0-46.0); Mean Corpuscular Volume 98.4 fL (80.0-100.0); Monocytes # (auto) 0.3 10 ^3/uL (0-1.3); Red Blood Cells 2.48 10^6/uL (4.0-5.20); Red Cell Distribution Width 13.8 % (11.8-14.3)
[2022-10-06 04:07] LABS: Basophils % (auto) 0.1 % (0.0-2.0); Hemoglobin 8.4 g/dL (12.2-16.2); Lymphocytes # (auto) 0.3 10 ^3/uL (0.4-5.4); Lymphocytes % (auto) 3.3 % (10.0-50.0); Mean Corpuscular Hgb Conc. 34.5 g/dL (32.0-36.0); Monocytes % (auto) 2.4 % (0.0-12.0); Neutrophils % (auto) 94.2 % (37.0-80.0); White Blood Cell 10.6 10^3/uL (4.4-10.8)
[2022-10-06 04:15] LABS: Albumin 2.6 g/dL (3.4-5.0); Calcium 8.3 mg/dL (8.5-10.1); Magnesium 1.6 mg/dL (1.6-2.6)
[2022-10-06 04:19] LABS: Bilirubin, Total 0.5 mg/dL (0.2-1.0); Phosphorus 2.6 mg/dL (2.5-4.90); Total Protein 5.8 g/dL (6.4-8.2)
[2022-10-06] MEDS: InsuLIN REG 1unit/0.01ml Soln (100units/ml) SC SCH ×4 (06:04→18:25)
[2022-10-06] MEDS: POTASSIUM CHL 20MEQ/100ML 100 ML IV SCH ×2 (10:21→12:27)
[2022-10-06] MEDS: THIAMINE 100mg/ml INJ (200mg/2ml VIAL) IV SCH (10:22)
[2022-10-06] MEDS: PANTOPRAZOLE 40 MG/10 ML VIAL INJ IV SCH (10:22)
[2022-10-06] MEDS: methylPREDNISolone SOD SUCC 40 MG/ML VL IV SCH ×2 (10:22→21:48)
[2022-10-06] MEDS: SODIUM CHLOR 0.9% PF (SALINE LOCK) 10ML VIAL/SYR IV SCH ×2 (10:22→21:47)
[2022-10-06] MEDS ORDERED: ENOXAPARIN SOD 40 MG/0.4 ML SYRINGE SC ONE (13:00)
[2022-10-06] MEDS ORDERED: FUROSEMIDE 20 MG/2 ML VIAL IV ONE (13:00)
[2022-10-06] MEDS ORDERED: DOCUSATE SOD 100 MG CAP PO ONE ×2 (13:00)
[2022-10-06] MEDS ORDERED: ACETAMINOPHEN 500 MG TAB PO PRN (13:00)
[2022-10-06] MEDS ORDERED: LACTULOSE 20Gm/30ML SOLN PO ONE (13:00)
[2022-10-06] MEDS ORDERED: MAGNESIUM SULFATE 1GM/100ML 100 ML IV ONE (16:45)
[2022-10-06] MEDS: MORPHINE SULFATE INJ 2 MG/ml SYRG IV PRN (17:12)
[2022-10-06] MEDS: AMINO ACID INFUSION IN D10W 1,000 ML IV NR (19:59)
[2022-10-06] MEDS ORDERED: TPN PER PHARMACY IV NR ×8 (20:00)
[2022-10-06] MEDS: DOCUSATE SOD 100 MG CAP PO SCH (21:48)
[2022-10-06] MEDS: LACTULOSE 20Gm/30ML SOLN PO SCH (21:48)
[2022-10-06] MEDS: traZODone HCL 50 MG TAB PO SCH (21:51)
[2022-10-06] MEDS ORDERED: DOCUSATE SOD 100 MG CAP PO SCH (22:00)
[2022-10-07] VITALS (27 sets, daily range): BP systolic 106–198; BP diastolic 59–169
[2022-10-07] MEDS: ACCU-CHEK COMFORT CURVE STRIP VI SCH ×3 (00:06→12:19)
[2022-10-07] MEDS: InsuLIN REG 1unit/0.01ml Soln (100units/ml) SC SCH ×3 (00:10→12:20)
[2022-10-07] MEDS: ceFAZolin 2 GM/D5W100ml 100 ML IV SCH ×3 (00:11→21:34)
[2022-10-07] MEDS: ALBUTEROL SULF 2.5 MG/0.5ML(0.5%) NEB SOLN NEB SCH ×4 (00:13→23:48)
[2022-10-07] MEDS: IPRATROPIUM BROM 0.5 MG/2.5ML INH SOL NEB SCH ×4 (00:13→23:48)
[2022-10-07] MEDS: LABETALOL HCL 5 MG/ML 4ML SYRINGE IV PRN ×3 (00:32→11:20)
[2022-10-07 05:36] LABS: Potassium 3.1 mmol/L (3.5-5.1)
[2022-10-07 05:43] LABS: Albumin 2.7 g/dL (3.4-5.0); BUN/Creatinine Ratio 32.2; Calcium 8.8 mg/dL (8.5-10.1)
[2022-10-07 06:08] LABS: Bilirubin, Total 0.7 mg/dL (0.2-1.0); Phosphorus 1.5 mg/dL (2.5-4.90)
[2022-10-07] MEDS: LACTULOSE 20Gm/30ML SOLN PO SCH ×2 (10:00→21:43)
[2022-10-07] MEDS ORDERED: POTASSIUM PHOSPHATE 44 MEQ in D5W 5% 250 ML IV ONE (10:00)
[2022-10-07] MEDS ORDERED: SODIUM PHOSPHATES 40 MEQ in D5W 5% 250 ML IV ONE (10:00)
[2022-10-07] MEDS: DOCUSATE SOD 100 MG CAP PO SCH ×2 (10:00→21:43)
[2022-10-07] MEDS ORDERED: ENOXAPARIN SOD 40 MG/0.4 ML SYRINGE SC SCH (10:00)
[2022-10-07] MEDS: PANTOPRAZOLE 40 MG/10 ML VIAL INJ IV SCH (10:35)
[2022-10-07] MEDS: methylPREDNISolone SOD SUCC 40 MG/ML VL IV SCH ×2 (10:35→21:40)
[2022-10-07] MEDS: THIAMINE 100mg/ml INJ (200mg/2ml VIAL) IV SCH (10:35)
[2022-10-07] MEDS: SODIUM CHLOR 0.9% PF (SALINE LOCK) 10ML VIAL/SYR IV SCH ×2 (10:35→21:40)
[2022-10-07] MEDS: dilTIAZem 125mg/125ml BAG KIT 125 ML IV SCH (10:56)
[2022-10-07] MEDS: LORazepam 2MG/ML-1ML VIAL IV PRN ×2 (11:49→22:24)
[2022-10-07] MEDS ORDERED: ENOXAPARIN SOD 40 MG/0.4 ML SYRINGE SC ONE (14:00)
[2022-10-07] MEDS ORDERED: HALOPERIDOL LACTATE 5 MG/ML INJ VIAL IM ONE (15:00)
[2022-10-07] MEDS: hydrALAZINE HCL 20 MG/ML VL IV PRN (15:39)
[2022-10-07] MEDS ORDERED: TPN PER PHARMACY IV NR ×10 (20:00)
[2022-10-07] MEDS: traZODone HCL 50 MG TAB PO SCH (21:40)
[2022-10-08] VITALS (9 sets, daily range): BP systolic 112–182; BP diastolic 61–118
[2022-10-08] MEDS: IPRATROPIUM BROM 0.5 MG/2.5ML INH SOL NEB SCH ×4 (00:05→20:19)
[2022-10-08] MEDS: ALBUTEROL SULF 2.5 MG/0.5ML(0.5%) NEB SOLN NEB SCH ×4 (00:19→20:18)
[2022-10-08] MEDS: ceFAZolin 2 GM/D5W100ml 100 ML IV SCH ×3 (01:29→17:00)
[2022-10-08] MEDS: LABETALOL HCL 5 MG/ML 4ML SYRINGE IV PRN (01:42)
[2022-10-08] MEDS: hydrALAZINE HCL 20 MG/ML VL IV PRN (03:58)
[2022-10-08 06:57] LABS: Basophils # (auto) 0 10 ^3/uL (0-0.2); Basophils % (auto) 0.8 % (0.0-2.0); Eosinophils # (auto) 0 10 ^3/uL (0-0.8); Hematocrit 27.2 % (36.0-46.0); Hemoglobin 9.5 g/dL (12.2-16.2); Lymphocytes # (auto) 0.3 10 ^3/uL (0.4-5.4); Lymphocytes % (auto) 6.5 % (10.0-50.0); Mean Corpuscular Hemoglobin 33.6 pg (28.0-32.0); Mean Corpuscular Volume 95.8 fL (80.0-100.0); Monocytes # (auto) 0.4 10 ^3/uL (0-1.3); Monocytes % (auto) 7.7 % (0.0-12.0); Neutrophils # (auto) 4.2 10 ^3/uL (1.6-8.6); Nucleated Red Blood Cells % 0.3 %; Red Blood Cells 2.84 10^6/uL (4.0-5.20); Red Cell Distribution Width 13.9 % (11.8-14.3); White Blood Cell 4.9 10^3/uL (4.4-10.8)
[2022-10-08 07:23] LABS: Albumin 2.9 g/dL (3.4-5.0); Magnesium 1.8 mg/dL (1.6-2.6); Potassium 3.2 mmol/L (3.5-5.1)
[2022-10-08 07:29] LABS: BUN/Creatinine Ratio 31.3; Bilirubin, Total 0.7 mg/dL (0.2-1.0); Phosphorus 3.2 mg/dL (2.5-4.90); Total Protein 5.6 g/dL (6.4-8.2)
[2022-10-08] MEDS: LORazepam 2MG/ML-1ML VIAL IV PRN (09:27)
[2022-10-08] MEDS: PANTOPRAZOLE 40 MG/10 ML VIAL INJ IV SCH (09:37)
[2022-10-08] MEDS: SODIUM CHLOR 0.9% PF (SALINE LOCK) 10ML VIAL/SYR IV SCH ×2 (09:37→21:01)
[2022-10-08] MEDS: methylPREDNISolone SOD SUCC 40 MG/ML VL IV SCH ×2 (09:44→21:01)
[2022-10-08] MEDS: ENOXAPARIN SOD 40 MG/0.4 ML SYRINGE SC SCH (09:44)
[2022-10-08] MEDS: THIAMINE 100mg/ml INJ (200mg/2ml VIAL) IV SCH (09:44)
[2022-10-08] MEDS: DOCUSATE SOD 100 MG CAP PO SCH ×2 (10:00→21:01)
[2022-10-08] MEDS: LACTULOSE 20Gm/30ML SOLN PO SCH ×2 (10:00→21:01)
[2022-10-08] MEDS ORDERED: POTASSIUM CHLORIDE 40 MEQ, LIDOCAINE 1% (LOCAL ANESTH.) 4 ML in SODIUM CHL 0.9% 250 ML IV ONE (11:30)
[2022-10-08] MEDS ORDERED: FUROSEMIDE 20 MG/2 ML VIAL IV ONE (11:30)
[2022-10-08] MEDS ORDERED: MAGNESIUM SULFATE 1GM/100ML 100 ML IV ONE (12:00)
[2022-10-08] MEDS ORDERED: AMIODARONE HCL 150 MG in D5W 5% 100 ML IV ONE (12:00)
[2022-10-08] MEDS ORDERED: POTASSIUM EFFERVESENT TAB 25 MEQ PO ONE (12:00)
[2022-10-08] MEDS ORDERED: AMIODARONE 450mg/250ml AE 250 ML IV SCH (12:15)
[2022-10-08] MEDS: AMIODARONE 450mg/250ml AE 250 ML IV SCH (18:08)
[2022-10-08] MEDS: traZODone HCL 50 MG TAB PO SCH (21:01)
[2022-10-09] MEDS: ALBUTEROL SULF 2.5 MG/0.5ML(0.5%) NEB SOLN NEB SCH ×2 (00:24→07:05)
[2022-10-09] MEDS: IPRATROPIUM BROM 0.5 MG/2.5ML INH SOL NEB SCH ×4 (00:24→18:00)
[2022-10-09] MEDS: ceFAZolin 2 GM/D5W100ml 100 ML IV SCH ×2 (00:28→09:24)
[2022-10-09 06:09] LABS: Basophils # (auto) 0 10 ^3/uL (0-0.2); Basophils % (auto) 0.1 % (0.0-2.0); Eosinophils # (auto) 0 10 ^3/uL (0-0.8); Eosinophils % (auto) 0.1 % (0.0-7.0); Hemoglobin 8.9 g/dL (12.2-16.2); Lymphocytes # (auto) 0.6 10 ^3/uL (0.4-5.4); Mean Corpuscular Hemoglobin 33.7 pg (28.0-32.0); Mean Corpuscular Hgb Conc. 34.2 g/dL (32.0-36.0); Mean Corpuscular Volume 98.8 fL (80.0-100.0); Monocytes # (auto) 0.7 10 ^3/uL (0-1.3); Monocytes % (auto) 8.8 % (0.0-12.0); Neutrophils # (auto) 6.4 10 ^3/uL (1.6-8.6); Nucleated Red Blood Cells % 0.1 %; Red Blood Cells 2.63 10^6/uL (4.0-5.20); Red Cell Distribution Width 14.3 % (11.8-14.3); White Blood Cell 7.7 10^3/uL (4.4-10.8)
[2022-10-09 06:20] LABS: BUN/Creatinine Ratio 30.8; Calcium 8.1 mg/dL (8.5-10.1); Magnesium 2.2 mg/dL (1.6-2.6); Potassium 3.8 mmol/L (3.5-5.1)
[2022-10-09] MEDS: AMIODARONE 450mg/250ml AE 250 ML IV SCH (06:30)
[2022-10-09 09:12] VITALS: BP 131/71
[2022-10-09] MEDS: SODIUM CHLOR 0.9% PF (SALINE LOCK) 10ML VIAL/SYR IV SCH ×2 (09:25→21:37)
[2022-10-09] MEDS: PANTOPRAZOLE 40 MG/10 ML VIAL INJ IV SCH (09:25)
[2022-10-09] MEDS: methylPREDNISolone SOD SUCC 40 MG/ML VL IV SCH ×2 (09:25→21:37)
[2022-10-09] MEDS: DOCUSATE SOD 100 MG CAP PO SCH ×2 (09:26→21:37)
[2022-10-09] MEDS: LACTULOSE 20Gm/30ML SOLN PO SCH ×2 (09:26→21:37)
[2022-10-09] MEDS: ENOXAPARIN SOD 40 MG/0.4 ML SYRINGE SC SCH (09:27)
[2022-10-09] MEDS: SERTRALINE HCL 50 MG TAB PO SCH (09:27)
[2022-10-09] MEDS ORDERED: IOHEXOL 350 MG/ML 100ML IJ ONE (12:08)
[2022-10-09 12:48] VITALS: BP 142/58
[2022-10-09] MEDS: CEPHALEXIN 250 MG CAP PO SCH ×2 (14:11→21:37)
[2022-10-09 16:14] VITALS: BP 144/78
[2022-10-09] MEDS: ALBUTEROL SULF 2.5 MG/0.5ML(0.5%) NEB SOLN NEB PRN (18:00)
[2022-10-09] MEDS: traZODone HCL 50 MG TAB PO SCH (21:37)
[2022-10-09 22:00] VITALS: BP 144/82
[2022-10-10] MEDS: IPRATROPIUM BROM 0.5 MG/2.5ML INH SOL NEB SCH ×3 (00:10→11:45)
[2022-10-10] MEDS: ALBUTEROL SULF 2.5 MG/0.5ML(0.5%) NEB SOLN NEB PRN (00:11)
[2022-10-10 05:00] VITALS: BP 131/66
[2022-10-10 06:42] LABS: Anion Gap 6 (5-15); Blood Urea Nitrogen 19 mg/dL (7-18); Calcium 8.1 mg/dL (8.5-10.1); Carbon Dioxide 32 mmol/L (21-32); Chloride 99 mmol/L (98-107); Glucose 96 mg/dL (74-106); Potassium 3.9 mmol/L (3.5-5.1); Sodium 137 mmol/L (136-145)
[2022-10-10 06:44] LABS: BUN/Creatinine Ratio 35.2; GFR African American 141 mL/min; GFR Non-African American 117 mL/min
[2022-10-10] MEDS ORDERED: CEPHALEXIN 250 MG CAP PO SCH ×2 (08:00→14:00)
[2022-10-10 08:21] LABS: Basophils # (auto) 0 10 ^3/uL (0-0.2); Basophils % (auto) 0.1 % (0.0-2.0); Eosinophils # (auto) 0 10 ^3/uL (0-0.8); Eosinophils % (auto) 0.5 % (0.0-7.0); Hematocrit 25.7 % (36.0-46.0); Hemoglobin 8.4 g/dL (12.2-16.2); Lymphocytes # (auto) 0.7 10 ^3/uL (0.4-5.4); Lymphocytes % (auto) 11.5 % (10.0-50.0); Mean Corpuscular Hemoglobin 31.8 pg (28.0-32.0); Mean Corpuscular Hgb Conc. 32.5 g/dL (32.0-36.0); Mean Corpuscular Volume 97.7 fL (80.0-100.0); Monocytes # (auto) 0.4 10 ^3/uL (0-1.3); Monocytes % (auto) 6.4 % (0.0-12.0); Neutrophils # (auto) 4.8 10 ^3/uL (1.6-8.6); Neutrophils % (auto) 81.5 % (37.0-80.0); Nucleated Red Blood Cells % 0.1 %; Red Blood Cells 2.63 10^6/uL (4.0-5.20); Red Cell Distribution Width 13.9 % (11.8-14.3); White Blood Cell 5.9 10^3/uL (4.4-10.8)
[2022-10-10 09:00] VITALS: BP 129/72
[2022-10-10] MEDS ORDERED: AMIODARONE HCL 200 MG TAB PO SCH (10:00)
[2022-10-10] MEDS: SODIUM CHLOR 0.9% PF (SALINE LOCK) 10ML VIAL/SYR IV SCH (10:14)
[2022-10-10] MEDS: PANTOPRAZOLE 40 MG/10 ML VIAL INJ IV SCH (10:14)
[2022-10-10] MEDS: methylPREDNISolone SOD SUCC 40 MG/ML VL IV SCH (10:15)
[2022-10-10] MEDS: DOCUSATE SOD 100 MG CAP PO SCH (10:15)
[2022-10-10] MEDS: LACTULOSE 20Gm/30ML SOLN PO SCH (10:15)
[2022-10-10] MEDS: SERTRALINE HCL 50 MG TAB PO SCH (10:16)
[2022-10-10 13:00] VITALS: BP 154/87
[2022-10-10 13:15] VITALS: BP 115/66
== END 2022-10-10 14:25 | disposition hospice, home (50) | DRG 870 ==
LOC: EDBD 01:35 → ER 01:44 → TELE 09:31 → ICU WEST 21:34 → DOU IN ICU 10-06 23:07 → ICU WEST 10-07 06:09 → DOU IN ICU 10-07 07:55 → TELE-EAST 10-08 16:42
PROVIDERS: ADMIT Registered Nurse; ATTEND Internal Medicine
PROC: 5A1955Z Respiratory Ventilation, Greater than 96 Consecutive Hours (ICD-10-PCS; principal; 2022-09-25)
PROC: 0BH17EZ Insertion of Endotracheal Airway into Trachea, Via Natural or Artificial Opening (ICD-10-PCS; 2022-09-25)
PROC: 06HM33Z Insertion of Infusion Device into Right Femoral Vein, Percutaneous Approach (ICD-10-PCS; 2022-09-25)
PROC: 05HF33Z Insertion of Infusion Device into Left Cephalic Vein, Percutaneous Approach (ICD-10-PCS; 2022-09-28)
PROC: B54NZZA Ultrasonography of Left Upper Extremity Veins, Guidance (ICD-10-PCS; 2022-09-28)
PROC: 02HV33Z Insertion of Infusion Device into Superior Vena Cava, Percutaneous Approach (ICD-10-PCS; 2022-10-01)
PROC: B548ZZA Ultrasonography of Superior Vena Cava, Guidance (ICD-10-PCS; 2022-10-01)
PROC: 5A09357 Assistance with Respiratory Ventilation, Less than 24 Consecutive Hours, Continuous Positive Airway Pressure (ICD-10-PCS; 2022-10-03)
PROC: 5A09357 Assistance with Respiratory Ventilation, Less than 24 Consecutive Hours, Continuous Positive Airway Pressure (ICD-10-PCS; 2022-10-04)
PROC: 5A09357 Assistance with Respiratory Ventilation, Less than 24 Consecutive Hours, Continuous Positive Airway Pressure (ICD-10-PCS; 2022-10-05)
DX: A41.2 Sepsis due to unspecified staphylococcus (principal); G93.41 Metabolic encephalopathy; I21.A1 Myocardial infarction type 2; J96.01 Acute respiratory failure with hypoxia; J15.211 Pneumonia due to Methicillin susceptible Staphylococcus aureus; I50.31 Acute diastolic (congestive) heart failure; E87.1 Hypo-osmolality and hyponatremia; J44.0 Chronic obstructive pulmonary disease with (acute) lower respiratory infection; J44.1 Chronic obstructive pulmonary disease with (acute) exacerbation; E66.9 Obesity, unspecified; E78.5 Hyperlipidemia, unspecified; E87.6 Hypokalemia; I11.0 Hypertensive heart disease with heart failure; F03.90 Unspecified dementia, unspecified severity, without behavioral disturbance, psychotic disturbance, mood disturbance, and anxiety; G89.29 Other chronic pain; D69.6 Thrombocytopenia, unspecified; D64.9 Anemia, unspecified; I48.91 Unspecified atrial fibrillation; K57.90 Diverticulosis of intestine, part unspecified, without perforation or abscess without bleeding; Z51.5 Encounter for palliative care; Z20.822 Contact with and (suspected) exposure to COVID-19; Z68.30 Body mass index [BMI] 30.0-30.9, adult
CPT/HCPCS: 31500; 36415; 36556; 36569; 36600; 70450; 71045; 71250; 71275; 72125; 74176; 80048; 80053; 80061; 80202; 80307; 81001; 82010; 82024; 82140; 82533; 82607; 82805; 82962; 83036; 83605; 83735; 83880; 83930; 83935; 84100; 84300; 84443; 84478; 84484; 84550; 85007; 85025; 85027; 85610; 85730; 87040; 87070; 87077; 87081; 87086; 87186; 87205; 87426; 92610; 93005; 93306; 93886; 93925; 93970; 94002; 94003; 94640; 94660; 96365; 96366; 96368; 96372; 96375; 97110; 97116; 97530; 99291; A4565; C9113; G0378; J0696; J1815; J1885; J2001; J2185; J2250; J2704; J3480; J3490; J7060; Q0162